=== PATIENT | female | born 1980 | race Caucasian/White ===

== ENCOUNTER 2019-04-19 19:51 | Emergency (ER) | payer BC, OTHER ==
[~2019-04-19] VITALS: Ht 160 cm; Wt 76.5 kg
[~2019-04-19 19:51] MED LIST: ALBU8HFA PO; LIDOcaine 1% W/epiNEPHrine 1:100,000 20ml vial ONE; PRED50TA PO
[2019-04-19 19:54] VITALS: BP 143/94
[2019-04-19] MEDS ORDERED: ACET-812 PO (20:22)
[2019-04-19] MEDS ORDERED: CYCL-1 PO (20:22)
[2019-04-19] MEDS ORDERED: LIDO700A32 TOP (20:22)
== END 2019-04-19 20:36 | disposition home or self-care (01) ==
LOC: ER 19:53
DX: M54.2 Cervicalgia (principal); M62.838 Other muscle spasm; J45.909 Unspecified asthma, uncomplicated; Z88.1 Allergy status to other antibiotic agents; Z88.8 Allergy status to other drugs, medicaments and biological substances; Z88.2 Allergy status to sulfonamides; Z79.899 Other long term (current) drug therapy; V89.2XXA Person injured in unspecified motor-vehicle accident, traffic, initial encounter; Y93.89 Activity, other specified; Y92.89 Other specified places as the place of occurrence of the external cause; Y99.8 Other external cause status
CPT/HCPCS: 99283